=== PATIENT | female | born 1970 | race Caucasian/White ===

== ENCOUNTER 2017-11-27 20:26 | Emergency (ER) | payer OTHER ==
[2017-11-27 20:44] VITALS: RESP 16; TEMP 97.9
--- NOTE | 2017-11-27 21:00 | EDPHY ---
H & P Time Seen by Provider: 11/27/17 20:32 HPI/ROS: HPI Concerned about high blood pressure. Cramping. 47-year-old female by private vehicle. This patient has a history of hypertension. She takes losartan and HCTZ to treat this. She reports that over the last week to 2 weeks she thinks that her blood pressure has been elevating. She saw her primary care physician on Wednesday. She reports that her blood pressure her primary care physician's office was in the 140 systolic. She reports that she had just run into the office and was doing with her kids and her primary care physician thought that it was elevated because she was slightly stressed. The patient also reports that she has had some cramping in her hands and feet over the last several days. Her primary care physician ordered a basic metabolic panel to check her potassium and make sure her kidney function was not being affected by her blood pressure. This blood draw was done today. She comes into the emergency department tonight because she states she was home and says that her blood pressure was after she had checked her blood pressure several times 140s over low 120s. And this elevated blood pressure persisted. This is the reason for her coming to the emergency department. She reports having a mild dull, gradual onset headache. She reports that is better now. She also states that she is worried because she has to travel on business on Wednesday for 3 days and wants to make sure it is okay for her to travel. She denies chest pain. No shortness of breath. No confusion. No other complaints. ROS: Constitutional: No fever, no chills. No weakness. Eyes: No discharge. No changes in vision. Respiratory: No cough. No shortness of breath. Cardiac: No chest pain, no palpitations. Gastrointestinal: No abdominal pain, no vomiting, no diarrhea. Genitourinary: No hematuria. No dysuria or increased frequency with urination. Musculoskeletal: No back pain. No neck pain. As above. Skin: No rashes. Neurological: As above. No focal weakness or altered sensation. Past medical history: Hypertension, anxiety, rheumatoid arthritis, appendectomy , breast augmentation. Social history: Nonsmoker. Drinks alcohol socially. with children. She states that she drinks a lot of caffeinated coffee. Physical Exam: General Appearance: Alert, no distress, mildly anxious. This patient is responding to questions appropriately and in full sentences. This patient appears well-hydrated and well-nourished. Eyes: Pupils equal and round no pallor or injection. No lid edema, erythema or injection. Respiratory: There are no retractions, lungs are clear to auscultation with good air movement bilaterally. Cardiovascular: Regular rate and rhythm. No murmur. Neurological: Motor sensory function is grossly intact. Cranial nerves are normal. Gait is normal. Skin: Warm and dry, no rashes. Extremities are symmetrical. All joints range without pain or impingement. Psychiatric: No agitation. No depression. Database: EKG: Imaging: Procedures: Emergency department course: Vital signs reviewed. She is moderately hypertensive here. I reviewed her blood work results from today. Her potassium and renal function are normal. Her presentation is not consistent with hypertensive emergency. I explained to her that she did not require medication to lower her blood pressure in the emergency department. I explained that I felt she was safe for travel for the next 3 days but it was important that she follow up with her primary care physician when she returned have her blood pressure monitored closely over the next several weeks. Medication to her antihypertensive treatment can then be adjusted accordingly. She feels comfortable with this plan. She understands for follow-up. She feels comfortable going home. I discussed cutting caffeine and other stimulants out of her diet and lifestyle completely. I explained the reasoning behind this. Return to emergency department precautions were thoroughly reviewed. She was discharged in good condition. Differential Diagnosis: The differential diagnosis on this patient includes but is not limited to anxiety, history of hypertension, elevated blood pressure. Hypertensive emergency unlikely. This represents a partial list of diagnoses considered. These considerations are based on history, physical exam, past history, reassessment and diagnostic testing. Smoking Status: Former smoker Constitutional: Initial Vital Signs Temperature (C) 36.6 C 11/27/17 20:41 Heart Rate 75 11/27/17 20:41 Respiratory Rate 16 11/27/17 20:41 Blood Pressure 146/99 H 11/27/17 20:41 O2 Sat (%) 94 11/27/17 20:41 O2 Delivery Mode Room Air Allergies/Adverse Reactions: No Known Allergies Allergy (Verified 11/27/17 20:44) Home Medications: Medication Instructions Recorded Clonazepam 11/27/17 Enbrel 11/27/17 Leflunomide 02/24/18 Losartan/Hydrochlorothiazide 11/27/17 Departure - Departure Disposition: Home, Routine, Self-Care Clinical Impression: Elevated blood pressure reading, History of hypertension Condition: Good Instructions: Hypertension (ED) Additional Instructions: Read and follow provided instructions. Follow-up with your primary care physician at the end of this week when you return from your business trip. You should have your blood pressure followed closely for the next 2-3 weeks to see if there is in need for a medication adjustment. Take your medication as prescribed. Avoid any caffeinated beverages or other stimulants as discussed. Return to the emergency department for worsening headache, confusion, shortness of breath, chest pain or other serious concerns. Referrals: Tia Turner MD [Primary Care Provider] - As per Instructions
[2017-11-27 21:21] VITALS: BP 122/94; PULSE 76; O2SAT 95
== END 2017-11-27 21:10 | disposition home or self-care (01) ==
LOC: CED 20:26
DX: I10 Essential (primary) hypertension (principal); Z87.891 Personal history of nicotine dependence

== ENCOUNTER → 2018-01-19 | Outpatient (CLI) | payer OTHER ==
[~2018-01-19] MED LIST: IOPAMIDOL (ISOVUE-370) 150 ML BTL IV ONE
== END ==
LOC: FIMAGING 09:05
PROVIDERS: ATTEND Internal Medicine Cardiovascular Disease
DX: R94.31 Abnormal electrocardiogram [ECG] [EKG] (principal); Z82.49 Family history of ischemic heart disease and other diseases of the circulatory system; I10 Essential (primary) hypertension; I20.8 Other forms of angina pectoris
CPT/HCPCS: Q9967

== ENCOUNTER 2018-02-09 07:03 | Observation (INO) | payer OTHER ==
[2018-02-09] MEDS ORDERED: NS 1,000 ML IV ONE (07:06)
--- NOTE | 2018-02-09 07:26 | CPEKG ---
Heart Rate: 70 RR Interval: 857 P-R Interval: 140 QRSD Interval: 92 QT Interval: 404 QTC Interval: 436 P [place]: 32 QRS [place]: 65 T Wave [place]: 57 EKG Severity - NORMAL ECG - EKG Impression: SINUS RHYTHM Electronically Signed By: Romeo Mills 09-Feb-2018 08:42:55
[2018-02-09 07:49] LABS: PLATELET COUNT 172 10^3/uL (150-400)
[2018-02-09] MEDS ORDERED: HEPARIN 10,000 UNIT/10 ML MDV (1,000 UNIT/ML) ONE (07:51)
[2018-02-09] MEDS ORDERED: LIDOCAINE 1% 300 MG/30 ML SDV ONE (07:51)
[2018-02-09] MEDS ORDERED: BUPIVACAINE 0.5% 30 ML SDV ONE (07:52)
[2018-02-09] MEDS ORDERED: ISOPROTERENOL HCL/D5W 0.2 MG/50 ML BAG IV ONE ×2 (07:52→10:45)
[2018-02-09 08:00] LABS: INR 1.05 (0.83-1.16); PROTIME(PATIENT) 13.9 SEC (12.0-15.0)
[2018-02-09] MEDS ORDERED: ROCURONIUM 50 MG/5 ML VIAL ONE ×2 (08:33→10:53)
[2018-02-09] MEDS ORDERED: PROPOFOL 200 MG/20 ML VIAL ONE (08:33)
[2018-02-09] MEDS ORDERED: DEXAMETHASONE 4 MG/ML VIAL ONE (08:33)
[2018-02-09] MEDS ORDERED: MIDAZOLAM 2 MG/2 ML VIAL IVP ONE (08:34)
--- NOTE | 2018-02-09 08:34 | PDANEPAE ---
ANE History of Present Illness Hx of palpitations, for EP study and ablation. ANE Past Medical History - Cardiovascular History Hx Hypertension: Yes Hx Arrhythmias: Yes Hx Chest Pain: No Hx Coronary Artery / Peripheral Vascular Disease: No Hx CHF / Valvular Disease: No Hx Palpitations: Yes - Pulmonary History Hx COPD: No Hx Asthma/Reactive Airway Disease: No Hx Recent Upper Respiratory Infection: No Hx Oxygen in Use at Home: No Hx Sleep Apnea: No - Endocrine History Hx Diabetes: No Hypothyroid: No Hyperthyroid: No Obesity: no - Renal History Hx Renal Disorders: No - Liver History Hx Hepatic Disorders: No - Neurological & Psychiatric Hx Hx Neurological and Psychiatric Disorders: Yes Neurological / Psychiatric History Comment: anxiety, on prn clonazepam - Cancer History Hx Cancer: No - GI History GERD: no - Other Health History Other Health History: Rheumatoid arthritis, anemia - Chronic Pain History Chronic Pain: Yes (rheumatoid arthritis, excellent control on Enbrel) - Surgical History Prior Surgeries: appendectomy, tubal ligation, bilateral augmentation mammoplasty. ANE Review of Systems Review of systems is: negative Review of Systems: - Exercise capacity METS (RN): 4 METS ANE Patient History - Allergies Allergies/Adverse Reactions: No Known Allergies Allergy (Verified 11/27/17 20:44) - Home Medications Home Medications: Etanercept [Enbrel] 50 mg SQ FR 11/27/17 [Last Taken 02/04/18 07:00] Losartan/Hydrochlorothiazide [Losartan-Hctz 100-25 mg Tab] 1 each PO DAILY 11/27 [Last Taken 02/07/18 07:00] clonazePAM [klonoPIN (*)] 1 mg PO DAILY PRN 11/27/17 [Last Taken 02/08/18 21:00] Cholecalciferol Vit D3 [Vitamin D3 (*)] 1,000 units PO DAILY 02/02/18 [Last Taken 02/07/18 07:00] Cyanocobalamin [Vitamin B12 (*)] 1,000 mcg PO DAILY 02/02/18 [Last Taken Unknown ] Ferrous Sulfate [Ferrous Sulf 325 MG (*)] 325 mg PO DAILY 02/02/18 [Last Taken 02/07/18 07:00] Herbals/Supplements -Info Only 1 ea PO DAILY 02/02/18 [Last Taken 02/07/18 07:00 ] Ibuprofen [Motrin (*)] 200 mg PO DAILY PRN 02/02/18 [Last Taken Unknown] [place]-3 Fatty Acids [Fish Oil 1000 mg (*)] 1,000 mg PO DAILY 02/02/18 [Last Taken 02/07/18 07:00] - Anes Hx Anes Hx: slow to awaken from anesthesia - Smoking Hx Smoking Status: Former smoker Marijuana use: No - Alcohol Use Alcohol Use: Other (2 drinks/week) - Family Anes Hx Family Anes Hx: none ANE Labs/Vital Signs - Labs Result Diagrams: 02/09/18 07:35 02/09/18 07:35 - Vital Signs Height: 165.1 cm Weight: 62.596 kg ANE Physical Exam - Airway Neck exam: FROM (no complaints of pain or soreness) Mouth exam: normal dental/mouth exam (L upper front cap) - Pulmonary Pulmonary: clear to auscultation - Cardiovascular Cardiovascular: regular rate and rhythym - ASA Status ASA Status: II ANE Anesthesia Plan Anesthesia Plan: general endotracheal anesthesia
--- NOTE | 2018-02-09 08:47 | PDGENHP ---
History & Physical Chief Complaint: palpitations, possible svt vs st Relevant Physical Exam: s1s2 rrr. cta. ao3 Cardiorespiratory Assessment: svt vs st. ablation if svt induced at eps
[2018-02-09] MEDS ORDERED: SEVOFLURANE 250 ML BOTTLE IH ONE (08:51)
[2018-02-09] MEDS ORDERED: NALOXONE HCL 0.4 MG/ML INJ IVP PRN (10:50)
[2018-02-09] MEDS ORDERED: ONDANSETRON 4 MG/2 ML VIAL ONE (11:13)
[2018-02-09] MEDS ORDERED: SUGAMMADEX SODIUM 200 MG/2 ML VIAL IVP ONE (11:30)
--- NOTE | 2018-02-09 11:33 | EPPROC ---
Electrophysiology Procedure Note: ELECTROPHYSIOLOGIC STUDY AND CATHETER MEDIATED ABLATION OF SLOW AV EWELINA PATHWAY PROCEDURES PERFORMED: 02430-31 EP evaluation with RA/RV/LA pace/record, with arrhythmia induction 44501-22 EP evaluation with RA/RV pace record, insert/reposition catheter, with arrhythmia induction 31014 Intracardiac catheter ablation, SVT arrhythmogenic focus 35310 3D mapping Fluoroscopy INDICATION: SVT with presyncope PROCEDURE: Catheters & Anesthesia: The patient arrived in the Electrophysiology Laboratory in the fasting state. The right clavicular region, right groin, and left groin area were prepped and draped in the usual sterile manner. Anesthesiologist Dr. Aparna Ng administered general anesthesia. Appropriate non-invasive blood pressure, pulse oximetry and end-tidal CO2 monitoring was established. All catheters were placed percutaneously using the modified Seldinger technique , and advanced into position under fluoroscopic guidance. One #6 Tristanian hexapolar non-deflectable electrode catheter was inserted into the right atrial appendage via the left femoral vein (2mm spacing; except the proximal ring which was 25cm from the tip used for unipolar recordings). One #7 Tristanian deflectable octapolar electrode catheter was advanced to the His-bundle position via the left femoral vein (2mm spacing). One #7 Tristanian deflectable quadrapolar catheter was advanced to the anteroseptal right ventricle via the right femoral vein. One #7 Tristanian deflectable catheter with 10 pairs of electrodes was placed via the right femoral vein into the coronary sinus. CS was difficult to access initially and SL2 sheath was used. Heparin was given to keep ACT > 200 s. Programmed stimulation was performed from the right atrium, right ventricle and coronary sinus (left atrium). Parahisian pacing demonstrated constant H-A interval with changing V-A intervals and stimulus-A intervals during capture and loss of capture of proximal RBB proving retrograde conduction over AV node. Despite isoproterenol up to 4 mcg/min and atropine 0.5 mg IV no sustained SVT was inducible. Patient had dual AV ewelina physiology and given SVT + presyncope we made decision to ablate slow AV ewelina pathway. A #8 Tristanian deflectable quadrapolar electrode catheter (2mm-5mm-2mm spacing) with 4 mm tip electrode and sensor for the 3D mapping Carto system was advanced to the right atrium. 3 D mapping of the inter-atrial septum and coronary sinus was performed and location of the AV node was marked. A SL2 sheath was used. RF applications were delivered to the region between the tricuspid annulus and the coronary sinus ostium, at the level of the upper edge of the coronary sinus ostium. Radiofrequency applications were also delivered along the roof of the proximal coronary sinus. Junctional rhythm occurred during all of the RF applications. Post ablation, there was no antegrade conduction over slow AV ewelina pathway. The catheters were removed. Sheaths were removed in the EP lab after applying subcutaneous purse string suture. The patient was transferred to the cardiovascular holding area in stable condition. There were no apparent complications. Results: A. Spontaneous Intervals: Pre ablation SCL 1000 ms AH 80 ms HV 40 ms Post ablation SCL 680 ms AH 70 ms HV 40 ms B. Antegrade AV ewelina function (decremental pacing) Pre ablation FPERP 400 ms SPERP 390 ms WBB CL 380 ms (AH jump from 160 ms to 220 ms at FPERP) Post ablation FPERP 320 ms WBB CL 310 ms (longest AH 170 ms) C. Retrograde AV ewelina function (decremental pacing) Pre ablation FPERP 360 ms WBB CL 350 ms D. Arrhythmias: Up to 2 AV ewelina echoes CONCLUSIONS 1. SVT seen on monitor. Dual AV ewelina physiology. Sustained SVT not inducible at EP study. 2. Successful ablation of the slow AV ewelina pathway. 3. No complications. Patient Problems: Problems Problem Status Onset Palpitations Acute
[2018-02-09] MEDS ORDERED: clonazePAM 1 MG TAB PO PRN (11:35)
[2018-02-09] MEDS ORDERED: IBUPROFEN 200 MG TAB PO PRN (11:35)
[2018-02-09] MEDS ORDERED: PROMETHAZINE HCL 25 MG/ML INJ IVP ONE (11:36)
[2018-02-09] MEDS ORDERED: PROMETHAZINE HCL 25 MG/ML INJ ONE (11:37)
--- NOTE | 2018-02-09 12:15 | POSTANESTH ---
Post Anesthetic Evaluation Cardiovascular Status: Normal, Stable Respiratory Status: Normal, Stable Level of Consciousness/Mental Status: Can Participate in Eval Pain Control: Adequate, Prn Tx Ordered Nausea/Vomiting Control: Adequate, Prn Tx Ordered Complications Possibly Related to Anesthesia: None Noted
[2018-02-09] MEDS: LOSARTAN/HCTZ 50/12.5 1 TAB PO SCH (13:49)
--- NOTE | 2018-02-09 15:01 | CPEKG ---
Heart Rate: 72 RR Interval: 833 P-R Interval: 132 QRSD Interval: 82 QT Interval: 404 QTC Interval: 443 P [place]: 52 QRS [place]: 67 T Wave [place]: 63 EKG Severity - BORDERLINE ECG - EKG Impression: SINUS RHYTHM EKG Impression: BORDERLINE T ABNORMALITIES, ANT-LAT LEADS Electronically Signed By: Calos Rosado 10-Feb-2018 06:53:32
[2018-02-10 04:13] LABS: PLATELET COUNT 173 10^3/uL (150-400)
[2018-02-10 04:40] LABS: CREATINE KINASE 24 IU/L (0-156)
[2018-02-10] MEDS: LOSARTAN/HCTZ 50/12.5 1 TAB PO SCH (08:00)
[2018-02-10 08:01] VITALS: BP 121/84
[2018-02-10] MEDS ORDERED: FERROUS SULFATE 325 MG TAB PO SCH (09:00)
[2018-02-10] MEDS ORDERED: CYANO/VITAMIN B12 1000 MCG TAB PO SCH (09:00)
[2018-02-10] MEDS ORDERED: CHOLECALCIFEROL VIT D3 1,000 UNITS TAB PO SCH (09:00)
[2018-02-10] MEDS ORDERED: ASPIRIN 81 MG CHEWABLE TAB PO SCH (09:00)
[2018-02-10] MEDS ORDERED: OMEGA-3 FATTY ACIDS 1,000 MG CAP PO SCH (09:00)
--- NOTE | 2018-02-10 09:02 | CPEKG ---
Heart Rate: 64 RR Interval: 938 P-R Interval: 140 QRSD Interval: 92 QT Interval: 416 QTC Interval: 430 P [place]: 41 QRS [place]: 73 T Wave [place]: 65 EKG Severity - NORMAL ECG - EKG Impression: SINUS RHYTHM Electronically Signed By: Calos Rosado 10-Feb-2018 10:39:06
--- NOTE | 2018-02-10 13:04 | GDS ---
[f rep st] DISCHARGE SUMMARY ADMISSION DIAGNOSES: 1. Paroxysmal supraventricular tachycardia. 2. Hypertension. DISCHARGE DIAGNOSES: 1. Paroxysmal supraventricular tachycardia. 2. Status post successful ablation of slow atrioventricular wen pathway. 3. Hypertension. PROCEDURES PERFORMED DURING HOSPITALIZATION: 1. Electrocardiogram. 2. Electrophysiology study. 3. Successful ablation of slow AV wen pathway. 4. Echocardiogram. BRIEF HISTORY: Please see H and P. Briefly, the patient is a 47-year-old female. Patient reporting a long history of palpitations, as far she can remember; reportedly worsening over 3 years. Recent event monitor showed 30-second episode of supraventricular tachycardia with heart rates up to 169 mariano ts per minute. She was seen by Dr. Rosado, who discussed potential medical therapy versus ablation, aft er which she decided she wanted to attempt to undergo electrophysiology study. Patient admitted through CVC, prepped for procedure, and taken to the electrophysiology lab. There, Dr. Rosado performed EP procedure, in which dual AV wen physiology was noted and VT was seen on the mo nitor, but no sustained SVT was induced in the EP lab. At that point, he ablated the slow AV wen p athway, with no complications. Patient was transferred back to the CVC and ultimately to the PCU ove rnight. Overnight, patient has maintained sinus rhythm with no malignant arrhythmias or pauses. She denies any chest pain or shortness of breath. She has been up and walking the floor of the telemetr y unit with no problems. PHYSICAL EXAM: (Done today) GENERAL APPEARANCE: Medium-built, well-groomed female. She i s alert and oriented to person, place, time, situation. Appears to be under no acute distress. REGINO L SIGNS: Current blood pressure 121/84, heart rate 67, sinus rhythm on the monitor, respirations 16, saturating 99% in room air, and temperature of 37 degrees Celsius. HEENT: Head is normocephalic. Lips and tongue are pink and moist with no signs of cyanosis. Conjunctivae pink. NECK: Trachea is midline, +2 carotid pulses bilateral; no auscultated bruits and no jugular vein distention. RESPIRAT ORY: Lungs are clear to auscultation. No rhonchi, rales, or wheezes. No accessory muscle use. No intercostal muscle retraction noted. CARDIAC: Regular rate. Regular rhythm. S1, S2. No S3, S4 ga llops, rubs, or murmurs noted. ABDOMEN: Soft, nontender. Bowel sounds x4 quadrants. No organomega ly. No palpable masses. SKIN: [place], warm, and dry. No cyanosis. No clubbing. No peripheral [place] a. VASCULAR: +2 carotids bilateral, +2 radials bilateral, +2 dorsal pedal and posterior tibial puls es bilateral. SKIN: Catheter insertion site, bilateral groin sites, with no redness, swelling, drai nage, ecchymosis, or hematoma. LABORATORY STUDIES: Drawn today: WBC of 7.93, hemoglobin 11.8, hematocrit of 34.5, platelet count 1 73. Sodium 142, potassium 4.2, chloride 112, CO2 26, BUN 10, creatinine 0.7, glucose 84, calcium 8.8 , magnesium 2.1, CK of 24, CK-MB of 0.75. Troponin 0.136. Note, expected mildly elevated cardiac m arkers due to ablation. STUDIES: Electrophysiology and ablation as mentioned above. Morning electrocardiogram showed sinus rhythm with normal axis and no significant ST or T-wave abnormalities. Preliminary morning echocardi ogram showing normal LV systolic function. No wall motion abnormalities. No pericardial effusion. DISCHARGE DISPOSITION: Patient will be discharged home in stable condition. She is under activity r estrictions of not lifting more than 10 pounds for the next week and no strenuous activity for the ne xt 2 weeks. DISCHARGE MEDICATIONS: Please see discharge med reconciliation sheet. Note, patient has been resume d on home medications. She has additionally been placed on aspirin therapy at 81 mg p.o. daily for t he next 6 weeks. DISCHARGE INSTRUCTIONS: Post SVT ablation discharge instructions gone over with the patient, includi nevaeh monitoring for signs of infection, bleeding, precautions, activity restrictions, and medication co mpliancy. The patient has also been encouraged for the next 6 weeks while awake, for every 35-45 min utes of sitting, she gets up and walks 5-10 minutes. She has also been told to take an aspirin 81 mg for the next 6 weeks. She has a followup appointment with her primary lacquer mixer, Dr. Brooks, on March 08. Patient has been told that if any problems or concerns come up post discharge, she is to n otify our office or return to the clinic. Total time spent on discharge greater than 30 minutes. /[id number]/MODL
--- NOTE | 2018-02-10 15:15 | ECHO ---
[email or web address] [address] [address] Main: [phone] Fax: Transthoracic Echocardiogram Name: KASSI MARTE MR#: [id number] Study Date: 02/10/2018 Study Time: 09:02 AM Date of : 1970 Age: 47 year(s) Height: 165.1 cm (65 in.) Weight: 62.6 kg (138 lb.) BSA: 1.69 m2 Gender: Female Examination: Echo Indication: f/u post EP study Image Quality: Adequate Contrast: Requested by: Calos Rosado BP: 121 mmHg/84 mmHg Heart Rate: Rhythm: Normal sinus rhythm Indication: f/u post EP study Procedure Staff Nail Artist: Debbi Desai [facility] Reading Physician: Maggie Hanna MD Requesting Provider: Conclusions: Normal size left ventricle. No LV hypertrophy. Normal global systolic LV function. The ejection fraction is visually estimated to be 68 %. No regional wall motion abnormality. Normal diastolic LV function. Normal size right ventricle. Normal RV function. The left atrium is normal in size. The right atrium is normal in size. Trivial aortic valve regurgitation. No pericardial effusion. Measurements: Chambers Valvular Assessment AV/MV Valvular Assessment TV/PV Normal Normal Normal Name Value Range Name Value Range Name Value Range Ao Kiley (2D): 2.6 cm (1.4 cm-2.6 AV Vmax: 1.31 m/s (1 m/s-1.7 TR Vmax: 1.77 mm/s ( - ) cm) m/s) TR PGmax: 13 mmHg ( - ) IVSd (2D): 1.0 cm (0.6 cm-1.1 AV maxP mmHg ( - ) syst. PAP: 18 mmHg ( - ) cm) LVOT Vmax: 1.06 m/s (0.7 m/s-1.1 PV Vmax: 0.96 m/s (0.6 m/s-0.9 LVDd (2D): 3.9 cm (3.9 cm-5.3 m/s) m/s) cm) MV E Vmax: 0.93 m/s ( - ) PV PGmax: 4 mmHg ( - ) LVDs (2D): 2.4 cm (2.1 cm-4 MV A Vmax: 0.63 m/s ( - ) cm) MV E/A: 1.48 ( - ) LVPWd (2D): 0.8 cm ( - ) LVEF (BP): 69 % (>=55 %) Visual EF: 68 % RVDd(2D): 3.1 cm (1.9 cm-3.8 cmmm) Patient: KASSI MARTE Study Date: 02/10/2018 Page 1 of 2 09:02 AM Continued Measurements: Chambers Valvular Assessment AV/MV Valvular Assessment TV/PV Name Value Name Value Name Value LADs: 2.8 cm MV DecTime: 201 m/s CVP (est.): 5 mmHg LADs Lon.7 cm MV E' Septal: 0.10 m/s LA Area: 14.8 cm2 MV E/E' Septal: 8.90 LA Volume: 36 ml MV E' Lateral: 0.11 m/s LA Volume Index: 21.3 ml/m2 MV E/E' Lateral: 8.40 TAPSE: 2.6 cm MV E' Mean: 0.11 m/s RA Area: 10.2 cm2 MV E/E' Mean: 8.86 Additional Vessels Name Value Ao Ascendin.7 cm Findings: Left Ventricle: Normal size left ventricle. No LV hypertrophy. Normal global systolic LV function. The ejection fraction is visually estimated to be 68 %. No regional wall motion abnormality. Normal diastolic LV function. Right Ventricle: Normal size right ventricle. Normal RV function. Left Atrium: The left atrium is normal in size. LA index volume 21.3ml/m2. Right Atrium: The right atrium is normal in size. Mitral Valve: The mitral valve is normal in appearance and function. There is mild thickening of the mitral valve leaflets. Trivial mitral valve regurgitation. No mitral stenosis is present. Aortic Valve: The aortic valve is normal in appearance and function. Trivial aortic valve regurgitation. No aortic valve stenosis is present. Tricuspid Valve: The tricuspid valve is normal in appearance and function. There is no significant tricuspid valve regurgitation. Pulmonic Valve: The pulmonic valve is normal in appearance and function. There is no pulmonic regurgitation seen. Aorta: The aorta is normal. Normal size aortic root measuring 2.6 cm, measuring 2.6 cm. Normal size ascending aorta measuring 2.7 cm. IVC: The IVC is normal sized. No foreign body in inferior vena cava. Pericardium: No pericardial effusion. (No Signature Object) Patient: KASSI MARTE Study Date: 02/10/2018 Page 2 of 2 09:02 AM [id number]
[2018-02-11] MEDS ORDERED: Etanercept [Enbrel] 50 MG SC SCH (09:00)
== END 2018-02-10 09:55 | disposition home or self-care (01) ==
LOC: FCATH 07:03 → F2W 11:23
PROVIDERS: ADMIT Internal Medicine Cardiovascular Disease; ATTEND Internal Medicine Cardiovascular Disease
DX: I47.1 Supraventricular tachycardia (principal); I10 Essential (primary) hypertension; M06.9 Rheumatoid arthritis, unspecified
CPT/HCPCS: 93005; 93306; 93613; 93621; 93623; 93653; C1730; C1732; C1893; G0378; C1731; J1100; J1644; J2250; J2405; J2550; J2704